=== PATIENT | male | born 1990 | race African-American/Black ===

== ENCOUNTER 2022-05-19 08:23 | Emergency (ER) | payer MEDICAID ==
[~2022-05-19] VITALS: Ht 188 cm; Wt 105.0 kg
[2022-05-19 08:44] VITALS: BP 130/80
[2022-05-19] MEDS ORDERED: HYDROCODONE/ACETAMINOPHEN 5/325MG TABLET PO ONE (11:45)
[2022-05-19] MEDS ORDERED: LIDOCAINE HCL/PF 1% 10 MG/ML 5ML VIAL INFIL ONE (11:45)
[2022-05-19] MEDS ORDERED: TETANUS, DIPHTHERIA, PERTUSSIS VAC/PF 0.5ML (>10YR OLD) IM ONE (11:45)
[2022-05-19] MEDS ORDERED: BACITRACIN ZINC OINT UDPKT TOP ONE (11:45)
== END 2022-05-19 13:30 | disposition home or self-care (01) ==
LOC: ER 08:59
DX: S61.412A Laceration without foreign body of left hand, initial encounter (principal); X99.1XXA Assault by knife, initial encounter; Y93.89 Activity, other specified; Y92.89 Other specified places as the place of occurrence of the external cause; Y99.8 Other external cause status
CPT/HCPCS: 12002; 90471; 90715; 99283; J3490; Z7610